=== PATIENT | male | born 1955 | race Caucasian/White ===

== ENCOUNTER 2019-01-15 11:16 | Emergency (ER) | payer MEDICAID ==
[~2019-01-15] VITALS: Ht 162.6 cm; Wt 81.6 kg
[2019-01-15 11:27] VITALS: BP_SYST 167
--- NOTE | 2019-01-15 11:43 | NUR ---
Patient to ER bed 04 to gown for evaluation. Side rails up.
--- NOTE | 2019-01-15 11:45 | NUR ---
Pt brought by family,A&Ox4, pt presents to ER with urinary frequency , suprapubic pain x 1 week, constipation x 4 days, pt states he went to [place] and received treatment for UTI and incontinence but symptoms not improving , afebrile, denies N/V, skin pink and warm, cap refill <3, VSS.
--- NOTE | 2019-01-15 11:50 | NUR ---
ER Dr. Warren at bedside examining patient.
--- NOTE | 2019-01-15 12:08 | NUR ---
Note tayla in EDM - 01/15/19 at 1211 by EMELI Patient is awake, alert, and oriented x4, [place]ic speaking only. Daughter is at [facility]. Patient is complaining of constipation x5 days, states he is taking medication for it but doesn't know the name. Patient is complaining of urinary frequency. Patient went to a doctor in [facility] and told him he needed to be hospitalized, he doesn't know what for.
[2019-01-15 12:25] LABS: BILIRUBIN,URINE NEGATIVE (NEGATIVE); BLOOD, URINE NEGATIVE (NEGATIVE); CLARITY/URINE CLEAR (CLEAR); COLOR,URINE YELLOW (YELLOW); GLUCOSE,URINE NEGATIVE (NEGATIVE); KETONES,URINE NEGATIVE (NEGATIVE); LEUKOCYTE ESTERASE ,URINE NEGATIVE (NEGATIVE); NITRITE, URINE NEGATIVE (NEGATIVE); PROTEIN URINE NEGATIVE (NEGATIVE); UROBILINOGEN,URINE 0.2 (0.2-1.0)
--- NOTE | 2019-01-15 13:04 | NUR ---
# 16 FR Bey catheter with use of sterile technique. Immediate return of 1800 cc yellow urine noted. Bedside drainage bag placed below level of bladder. Urine sample collected and sent to lab. Pt tolerated procedure well.
--- NOTE | 2019-01-15 13:24 | NUR ---
600cc of yellow urine emptied from carr catheter. Leg bag placed, patient and his daughter instructed on how to empty it, they verbalized understanding.
--- NOTE | 2019-01-15 13:55 | NUR ---
Report given to ROSHAN Ny for continuation of care.
--- NOTE | 2019-01-15 14:33 | NUR ---
Pt resting at this time, VSS, respirations even and unlabored.
--- NOTE | 2019-01-15 14:45 | NUR ---
Pt states he feels weak at this time, this nurse checked BS with result of 37, MD notified, order received for D50 IVP.
--- NOTE | 2019-01-15 14:55 | NUR ---
D50 given as ordered for low BS.
[2019-01-15] MEDS ORDERED: DEXTROSE 50% JECT 50 ML DISP.SYRIN IVP ONE (15:00)
[2019-01-15] MEDS ORDERED: DEXTROSE 50% JECT 50 ML DISP.SYRIN ONE (15:10)
--- NOTE | 2019-01-15 15:20 | NUR ---
Pt current BS 121,pt states he fells better now, notified
[2019-01-15 16:22] VITALS: BP_SYST 137
--- NOTE | 2019-01-15 16:22 | NUR ---
Patient given written and verbal discharge instructions and verbalizes understanding. ER MD discussed with patient the results and treatment provided. Patient in stable condition. ID arm band removed. IV catheter removed intact and dressing applied, no active bleeding. Rx of Milk of magnesia and Ditropan given. Patient educated on pain management and to follow up with PMD. Pain Scale 2/10 tolerable for pt . Opportunity for questions provided and answered. Medication side effect fact sheet provided.
== END 2019-01-15 16:22 | disposition home or self-care (01) ==
LOC: SED 11:16
DX: R33.9 Retention of urine, unspecified (principal); E11.9 Type 2 diabetes mellitus without complications; E07.9 Disorder of thyroid, unspecified
CPT/HCPCS: 81003; 82962; 96374; 99283